=== PATIENT | female | born 1965 | race Caucasian/White ===

== ENCOUNTER 2025-02-15 10:43 | Emergency (ER) | payer BC ==
[2025-02-15] MEDS ORDERED: Sodium Chloride 0.9% 10 ML Syringe FLUSH PRN (10:56)
[2025-02-15 11:13] LABS: BASOPHILS PERCENT AUTO 0.3 % (0.0-1.0); EOSINOPHILS PERCENT AUTO 3.0 % (1.0-3.0); LYMPHOCYTES PERCENT AUTO 30.8 % (20.5-50.1); MONOCYTES PERCENT AUTO 9.1 % (2-8); NEUTROPHILS PERCENT AUTO 56.8 % (42.2-75.2); PLATELET COUNT,PLT 304 10^3/uL (150-450); RED BLOOD CELL COUNT 4.46 10^6/uL (4.2-5.4); WHITE BLOOD CELL COUNT,WBC 5.7 10^3/uL (5.0-10.0)
[2025-02-15 11:33] LABS: BLOOD UREA NITROGEN,BUN 20.0 mg/dL (7-18); CARBON DIOXIDE,CO2 28.0 mmol/L (21-32); CHLORIDE,CL 104.0 mmol/L (98-107); CREATININE 1.01 mg/dL (0.55-1.02); EST CRCL DRUG DOSING (CG) 53.07 mL/min; ESTIMATED GFR 65.0 mL/min (>=60); GLUCOSE RANDOM 93.0 mg/dL (70-99); POTASSIUM,K 4.2 mmol/L (3.5-5.1); SODIUM,NA 139.0 mmol/L (136-145)
[2025-02-15 11:51] LABS: APPEARANCE,URINE CLEAR (CLEAR); GLUCOSE,URINE NEGATIVE (NEGATIVE); OCCULT BLOOD,URINE NEGATIVE (NEGATIVE)
[2025-02-15 12:13] LABS: EPITHELIAL CELLS,URINE FEW /HPF (NOT SEEN)
== END 2025-02-15 12:53 | disposition home or self-care (01) ==
LOC: DL.ED 10:43
DX: R42 Dizziness and giddiness (principal); Z79.899 Other long term (current) drug therapy
CPT/HCPCS: 36415; 70450; 80048; 81001; 84484; 85025; 87086; 93005; 99285; A9270; 93010; 99284